=== PATIENT | female | born 1965 | race Caucasian/White ===

== ENCOUNTER 2019-04-17 11:09 | Day surgery (SDC) | payer OTHER ==
[2019-04-17] MEDS ORDERED: LIDOCAINE 2% (SDV) 5 ML INJ (12:26)
[2019-04-17] MEDS ORDERED: PROPOFOL 60 ML (12:26)
== END 2019-04-17 14:56 | disposition home or self-care (01) ==
LOC: GIL 11:09
DX: Z80.0 Family history of malignant neoplasm of digestive organs (principal); E03.9 Hypothyroidism, unspecified; K59.00 Constipation, unspecified
CPT/HCPCS: 45378; 88305

== ENCOUNTER 2019-05-29 10:15 | Inpatient (IN) | payer OTHER ==
[2019-05-29] MEDS: Metronidazole 500 MG in NS 100 ML IVPB (10:00)
[2019-05-29] MEDS: CEFAZOLIN 2 GM/50 ML (PMX) 50 ML IVPB ×2 (10:00→21:39)
[2019-05-29] MEDS: LACTATED RINGER'S 1,000 ML IV (12:00)
[2019-05-29] MEDS ORDERED: GLYCOPYRROLATE 0.4 MG INJ (12:09)
[2019-05-29] MEDS ORDERED: FENTAnyl 50 MCG/ML VIAL (12:09)
[2019-05-29] MEDS ORDERED: NEOSTIGMINE 3 MG/3 ML SYRINGE (12:09)
[2019-05-29] MEDS ORDERED: ROCURONIUM 50 MG INJ (12:09)
[2019-05-29] MEDS ORDERED: CEFAZOLIN 1 GM INJ ×2 (12:09→13:13)
[2019-05-29] MEDS ORDERED: MIDAZOLAM 1 MG/ML 2 ML INJ (12:09)
[2019-05-29] MEDS ORDERED: PROPOFOL 20 ML (12:09)
[2019-05-29] MEDS ORDERED: DEXAMETHASONE 4 MG/ML 5 ML INJ (12:10)
[2019-05-29] MEDS ORDERED: ONDANSETRON 4 MG INJ (12:10)
[2019-05-29] MEDS ORDERED: morphine SULFATE/PF (10 MG/10 ML) INJ ×2 (12:11→12:43)
[2019-05-29] MEDS ORDERED: EPHEDrine 25 MG/5 ML SYG (12:58)
[2019-05-29] MEDS ORDERED: FAMOTIDINE 20 MG INJ (13:04)
[2019-05-29] MEDS ORDERED: metroNIDAZOLE 500 MG/NS (PMX) 100 ML IVPB (13:12)
[2019-05-29] MEDS ORDERED: SUCCINYLCHOLINE CHLORIDE 100 MG/5 ML SYG IV (13:12)
[2019-05-29] MEDS ORDERED: LIDOCAINE 2% (SDV) 5 ML INJ (13:13)
[2019-05-29] MEDS ORDERED: HYDROmorphONE 1 MG/5 ML IV SYRINGE IV ×3 (13:30)
[2019-05-29] MEDS ORDERED: FENTAnyl 50 MCG/ML VIAL IV ×2 (13:30)
[2019-05-29] MEDS ORDERED: PROCHLORPERAZINE 10 MG INJ IV (13:30)
[2019-05-29] MEDS ORDERED: MEPERIDINE 25 MG INJ IV (13:30)
[2019-05-29] MEDS ORDERED: OXYCODONE/ACETAMINOPHEN (5/325) TAB PO (13:30)
[2019-05-29] MEDS ORDERED: SUGAMMADEX SODIUM 200 MG/2 ML VIAL IV (14:25)
[2019-05-29] MEDS ORDERED: ONDANSETRON 4 MG INJ IV ×2 (14:30→15:00)
[2019-05-29] MEDS ORDERED: DIPHENHYDRAMINE 50 MG INJ IV (14:30)
[2019-05-29] MEDS ORDERED: KETOROLAC 30 MG INJ IV (14:30)
[2019-05-29] MEDS ORDERED: NALBUPHINE HCL (10 MG/1 ML) INJ IV (14:30)
[2019-05-29] MEDS ORDERED: HYDROmorphONE 0.5 MG/0.5 ML SYG IV ×2 (14:30)
[2019-05-29] MEDS ORDERED: NALOXONE (0.4 MG/ML) INJ IV (14:30)
[2019-05-29] MEDS: FENTAnyl 50 MCG/ML VIAL IV ×4 (14:53→15:23)
[2019-05-29] MEDS ORDERED: ACETAMINOPHEN 325 MG TAB PO (15:00)
[2019-05-29 15:09] LABS: ADD MAN DIFF? NO
[2019-05-29 15:10] LABS: WHITE BLOOD COUNT 6.7 10^3/ul (4.8-10.8)
[2019-05-29 15:10] LABS: BASOPHILS % 0.3 % (0.0-2.0); EOSINOPHILS # 0.1 10^3/ul (0.0-0.5); EOSINOPHILS % 1.9 % (0.0-7.0); HEMATOCRIT 36.2 % (37.0-47.0); HEMOGLOBIN 12.4 g/dl (12.0-16.0); LYMPHOCYTES # 1.8 10^3/ul (0.8-2.9); LYMPHOCYTES % 27.6 % (15.0-51.0); MEAN CORPUSCULAR HGB CONC 34.3 g/dl (32.0-37.0); MEAN CORPUSCULAR VOLUME 87.4 fl (82.0-101.0); MEAN PLATELET VOLUME 8.7 fl (7.4-10.4); MONOCYTE # 0.2 10^3/ul (0.3-0.9); MONOCYTES % 3.4 % (0.0-11.0); NEUTROPHIL # 4.4 10^3/ul (1.6-7.5); NEUTROPHILS % 66.5 % (39.0-77.0); PLATELET COUNT 215 10^3/UL (140-415); RED BLOOD COUNT 4.14 10^6/ul (4.20-5.40)
[2019-05-29] MEDS: ONDANSETRON 4 MG INJ IV (15:23)
[2019-05-29 15:29] LABS: ANION GAP 8 (5-13); BLOOD UREA NITROGEN 10 mg/dl (7-20); CALCIUM 8.8 mg/dl (8.4-10.2); CARBON DIOXIDE 27 mmol/L (21-31); CHLORIDE 105 mmol/L (97-110); CREATININE 0.74 mg/dl (0.44-1.00); Estimated GFR > 60 mL/min (>60); GLUCOSE 114 mg/dl (70-220); SODIUM 140 mmol/L (135-144)
[2019-05-29] MEDS: DIPHENHYDRAMINE 50 MG INJ IV (15:33)
[2019-05-29 15:34] LABS: POTASSIUM 3.4 mmol/L (3.5-5.1)
[2019-05-29] MEDS: D5W-0.45 NACL + KCL 20 MEQ 1,000 ML IV (16:06)
[2019-05-29] MEDS: metroNIDAZOLE 500 MG/NS (PMX) 100 ML IVPB (20:33)
[2019-05-29] MEDS: KETOROLAC 30 MG INJ IV (20:34)
[2019-05-29] MEDS: FAMOTIDINE 20 MG TAB PO (20:34)
[2019-05-30] MEDS: KETOROLAC 30 MG INJ IV ×4 (02:42→20:36)
[2019-05-30] MEDS: metroNIDAZOLE 500 MG/NS (PMX) 100 ML IVPB ×2 (04:24→11:51)
[2019-05-30 05:06] LABS: ADD MAN DIFF? NO
[2019-05-30 05:19] LABS: WHITE BLOOD COUNT 7.6 10^3/ul (4.8-10.8)
[2019-05-30 05:19] LABS: BASOPHILS % 0.1 % (0.0-2.0); HEMATOCRIT 33.1 % (37.0-47.0); HEMOGLOBIN 11.3 g/dl (12.0-16.0); LYMPHOCYTES % 12.8 % (15.0-51.0); MEAN CORPUSCULAR HEMOGLOBIN 30.1 pg (29.0-33.0); MEAN CORPUSCULAR HGB CONC 34.1 g/dl (32.0-37.0); MEAN CORPUSCULAR VOLUME 88.3 fl (82.0-101.0); MEAN PLATELET VOLUME 9.3 fl (7.4-10.4); MONOCYTE # 0.6 10^3/ul (0.3-0.9); MONOCYTES % 8.1 % (0.0-11.0); NEUTROPHILS % 78.7 % (39.0-77.0); PLATELET COUNT 206 10^3/UL (140-415); RED BLOOD COUNT 3.75 10^6/ul (4.20-5.40); RED CELL DISTRIBUTION WIDTH 12.9 % (11.5-14.5)
[2019-05-30] MEDS: CEFAZOLIN 2 GM/50 ML (PMX) 50 ML IVPB ×2 (05:40→13:13)
[2019-05-30 05:48] LABS: ANION GAP 9 (5-13); BLOOD UREA NITROGEN 10 mg/dl (7-20); CALCIUM 8.8 mg/dl (8.4-10.2); CARBON DIOXIDE 24 mmol/L (21-31); CHLORIDE 101 mmol/L (97-110); CREATININE 0.79 mg/dl (0.44-1.00); Estimated GFR > 60 mL/min (>60); GLUCOSE 151 mg/dl (70-220); SODIUM 134 mmol/L (135-144)
[2019-05-30] MEDS: FAMOTIDINE 20 MG TAB PO ×2 (08:09→20:38)
[2019-05-30] MEDS: ENOXAPARIN 30 MG/0.3 ML SYG SC (08:14)
[2019-05-30] MEDS: D5W-0.45 NACL + KCL 20 MEQ 1,000 ML IV ×2 (11:52→17:43)
[2019-05-30] MEDS ORDERED: DIPHENHYDRAMINE 50 MG INJ IV (19:00)
[2019-05-31] MEDS: KETOROLAC 30 MG INJ IV ×2 (02:41→08:43)
[2019-05-31 04:58] LABS: ADD MAN DIFF? NO
[2019-05-31 05:16] LABS: WHITE BLOOD COUNT 4.7 10^3/ul (4.8-10.8)
[2019-05-31 05:17] LABS: BASOPHILS % 0.4 % (0.0-2.0); EOSINOPHILS # 0.2 10^3/ul (0.0-0.5); EOSINOPHILS % 3.9 % (0.0-7.0); HEMATOCRIT 33.9 % (37.0-47.0); HEMOGLOBIN 11.1 g/dl (12.0-16.0); LYMPHOCYTES # 1.8 10^3/ul (0.8-2.9); LYMPHOCYTES % 38.4 % (15.0-51.0); MEAN CORPUSCULAR HGB CONC 32.7 g/dl (32.0-37.0); MEAN CORPUSCULAR VOLUME 91.6 fl (82.0-101.0); MEAN PLATELET VOLUME 9.5 fl (7.4-10.4); MONOCYTE # 0.4 10^3/ul (0.3-0.9); MONOCYTES % 7.5 % (0.0-11.0); NEUTROPHIL # 2.3 10^3/ul (1.6-7.5); NEUTROPHILS % 49.6 % (39.0-77.0); PLATELET COUNT 207 10^3/UL (140-415); RED CELL DISTRIBUTION WIDTH 13.4 % (11.5-14.5)
[2019-05-31 06:01] LABS: ANION GAP 5 (5-13); BLOOD UREA NITROGEN 13 mg/dl (7-20); CALCIUM 8.8 mg/dl (8.4-10.2); CARBON DIOXIDE 28 mmol/L (21-31); CHLORIDE 106 mmol/L (97-110); CREATININE 0.98 mg/dl (0.44-1.00); Estimated GFR 59 mL/min (>60); GLUCOSE 86 mg/dl (70-220); POTASSIUM 3.8 mmol/L (3.5-5.1); SODIUM 139 mmol/L (135-144)
[2019-05-31] MEDS: ENOXAPARIN 30 MG/0.3 ML SYG SC (08:22)
[2019-05-31] MEDS ORDERED: HYDROCODONE/APAP (5/325) TAB PO (08:30)
[2019-05-31] MEDS: FAMOTIDINE 20 MG TAB PO (08:43)
== END 2019-05-31 10:55 | disposition home or self-care (01) | DRG 331 ==
LOC: REC 10:15 → MS1 15:58
PROC: 0DBE0ZZ Excision of Large Intestine, Open Approach (ICD-10-PCS; principal; 2019-05-29 12:00)
DX: Z43.3 Encounter for attention to colostomy (principal)
CPT/HCPCS: 80048; 85025; 87086; 88304